=== PATIENT | female | born 1990 | race Hispanic/Latino ===

== ENCOUNTER 2018-12-24 10:11 | Emergency (ER) | payer BC ==
[2018-12-24] MEDS ORDERED: DEXAMETHASONE 4 MG TAB ONE (11:06)
[2018-12-24] MEDS ORDERED: DIAZEPAM 2 MG TABLET ONE (11:07)
[2018-12-24] MEDS ORDERED: KETOROLAC 30 MG/ML INJ ONE (11:07)
[2018-12-24] MEDS ORDERED: HYDROCODONE/APAP 10/325 TAB ONE (12:22)
--- NOTE | 2018-12-24 13:14 | EDPHYS ---
Physician Documentation [facility] Name: Robyn Ricks Age: 28 yrs Sex: Female : 1990 Arrival Date: 12/24/2018 Time: 10:14 Bed 17 Private MD: ED Physician Vinay Diggs HPI: 12/24 11:02 This 28 yrs old Female presents to ER via Wheelchair with complaints of Back pm1 Pain. 11:02 The patient presents with pain that is acute. The symptoms are located in the left low pm1 back and left mid back. Onset: The symptoms/episode began/occurred this morning. The pain does not radiate. Associated signs and symptoms: Pertinent negatives: abdominal pain, chest pain, constipation, dysuria, fever, headache, incontinence, nausea, numbness, tingling, urinary retention, vomiting. The problem was sustained when bending over, when lifting baby. Modifying factors: The patient symptoms are alleviated by remaining still, rest, the patient symptoms are aggravated by bending, movement, walking, sitting. Severity of symptoms: in the emergency department the symptoms are unchanged. The patient has not experienced similar symptoms in the past. Patient believes that pain started after putting her baby down into the crib last night. Woke up with back pain. No urinary complaints or incontinence. 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 - Social history:: Smoking status: Patient/guardian denies using tobacco. - Ebola Screening: : No symptoms or risks identified at this time. ROS: 11:02 Constitutional: Negative for fever, chills, and weight loss, Eyes: Negative for injury, pm1 pain, redness, and discharge, ENT: Negative for injury, pain, and discharge, Neck: Negative for injury, pain, and swelling, Cardiovascular: Negative for chest pain, palpitations, and edema, Respiratory: Negative for shortness of breath, cough, wheezing, and pleuritic chest pain, Abdomen/GI: Negative for abdominal pain, nausea, vomiting, diarrhea, and constipation. 11:02 : Negative for injury, bleeding, discharge, and swelling, MS/Extremity: Negative for injury and deformity, Skin: Negative for injury, rash, and discoloration, Neuro: Negative for headache, weakness, numbness, tingling, and seizure. 11:02 Back: Positive for pain with movement, of the left low back and left mid back, Negative for pain at rest. Exam: 11:02 Constitutional: This is a well developed, well nourished patient who is awake, alert, pm1 and in no acute distress. Head/Face: Normocephalic, atraumatic. Eyes: Pupils equal round and reactive to light, extra-ocular motions intact. Lids and lashes normal. Conjunctiva and sclera are non-icteric and not injected. Cornea within normal limits. Periorbital areas with no swelling, redness, or edema. ENT: Nares patent. No nasal discharge, no septal abnormalities noted. Tympanic membranes are normal and external auditory canals are clear. Oropharynx with no redness, swelling, or masses, exudates, or evidence of obstruction, uvula midline. Mucous membranes moist. Neck: Trachea midline, no thyromegaly or masses palpated, and no cervical lymphadenopathy. Supple, full range of motion without nuchal rigidity, or vertebral point tenderness. No Meningismus. Chest/axilla: Normal chest wall appearance and motion. Nontender with no deformity. No lesions are appreciated. Cardiovascular: Regular rate and rhythm with a normal S1 and S2. No gallops, murmurs, or rubs. Normal PMI, no JVD. No pulse deficits. Respiratory: Lungs have equal breath sounds bilaterally, clear to auscultation and percussion. No rales, rhonchi or wheezes noted. No increased work of breathing, no retractions or nasal flaring. Abdomen/GI: Soft, non-tender, with normal bowel sounds. No distension or tympany. No guarding or rebound. No evidence of tenderness throughout. 11:02 Skin: Warm, dry with normal turgor. Normal color with no rashes, no lesions, and no evidence of cellulitis. MS/ Extremity: Pulses equal, no cyanosis. Neurovascular intact. Full, normal range of motion. 11:02 Back: pain, is absent, vertebral process from c-spine to l-spine, normal spinal alignment noted. 11:02 Neuro: Orientation: is normal, Motor: is normal, Sensation: is normal, no obvious gross deficits. Vital Signs: 10:34 BP 113 / 75; Pulse 90; Resp 16; Temp 97.9; Pulse Ox 99% ; Pain 10/10; hb 13:25 BP 107 / 69; Pulse 85; Resp 14; Pulse Ox 100% ; bp MDM: 10:41 Patient medically screened. pm1 11:05 Data reviewed: vital signs. Data interpreted: Pulse oximetry: on room air is 99 %. pm1 Interpretation: normal. 12:08 ED course: Patient reports no improvement in pain, will order additional medication. pm1 13:11 Counseling: I had a detailed discussion with the patient and/or guardian regarding: the pm1 historical points, exam findings, and any diagnostic results supporting the discharge/admit diagnosis, the need for outpatient follow up, to return to the emergency department if symptoms worsen or persist or if there are any questions or concerns that arise at home. ED course: Patient's pain improved with medications. Patient reports improvement to right back area with gentle massage. Administered Medications: 10:52 Drug: TORadol 60 mg Route: IM; Site: right gluteus; bp 12:13 Follow up: Response: Pain is unchanged, physician notified bp 10:52 Drug: Valium 2 mg Route: PO; bp 12:13 Follow up: Response: Pain is unchanged, physician notified bp 10:52 Drug: Decadron 10 mg Route: IM; Site: Other; bp 12:14 Follow up: Response: Pain is unchanged, physician notified bp 12:14 Drug: [place] 10 mg-325 mg 1 tabs Route: PO; bp 13:27 Follow up: Response: Pain is decreased bp Disposition: 14:58 Co-signature as Attending Physician, Vinay Diggs MD I agree with the assessment and kdr plan of care. Disposition: 12/24/18 13:13 Discharged to Home. Impression: Strain of muscle and tendon of back wall of thorax. - Condition is Stable. - Discharge Instructions: Muscle Strain. - Prescriptions for Naprosyn 500 mg Oral Tablet - take 1 tablet by ORAL route 2 times per day take with food; 30 tablet. Tylenol- Codeine #3 300-30 mg Oral Tablet - take 2 tablets by ORAL route every 6 hours As needed; 20 tablet. Cyclobenzaprine 10 mg Oral Tablet - take 1 tablet by ORAL route every 8 hours As needed; 30 tablet. - Medication Reconciliation Form, Thank You Letter, Antibiotic Education, Prescription Opioid Use form. - Follow up: Emergency Department; When: As needed; Reason: Worsening of condition. Follow up: Private Physician; When: 2 - 3 days; Reason: Recheck today's complaints, Continuance of care, Re-evaluation by your physician. - Problem is new. - Symptoms have improved. Signatures: Vinay Diggs MD MD [facility] Ray Henry NP WASH RACK OPERATOR pm1 Carolann Valdez, RN RN Glenn Eckert RN RN bp Corrections: (The following items were deleted from the chart) 13:28 13:13 12/24/2018 13:13 Discharged to Home. Impression: Strain of muscle and tendon of bp back wall of thorax. Condition is Stable. Forms are Medication Reconciliation Form, Thank You Letter, Antibiotic Education, Prescription Opioid Use. Follow up: Emergency Department; When: As needed; Reason: Worsening of condition. Follow up: Private Physician; When: 2 - 3 days; Reason: Recheck today's complaints, Continuance of care, Re-evaluation by your physician. Problem is new. Symptoms have improved. pm1
--- NOTE | 2018-12-24 13:14 | ER ---
Nurse's Notes [facility] Name: Robyn Ricks Age: 28 yrs Sex: Female : 1990 Arrival Date: 12/24/2018 Time: 10:14 Bed 17 Private MD: Diagnosis: Strain of muscle and tendon of back wall of thorax Presentation: 12/24 10:32 Presenting complaint: Left mid back pain upon waking today. Pain is described as a hb severe cramp, worse when standing and sitting erect. Denies injury or urinary s/s. Transition of care: patient was not received from another setting of care. Onset of symptoms was December 24, 2018. Risk Assessment: Do you want to hurt yourself or someone else? Patient reports no desire to harm self or others. Care prior to arrival: None. 10:32 Method Of Arrival: Wheelchair hb 10:32 Acuity: BRANDI 4 hb 10:45 Initial Sepsis Screen: Does the patient meet any 2 criteria? No. Patient's initial bp sepsis screen is negative. Does the patient have a suspected source of infection? No. Patient's initial sepsis screen is negative. Triage Assessment: 10:36 General: Appears in no apparent distress. comfortable, Behavior is cooperative, bp appropriate for age, anxious. Pain: Complains of pain in back. EENT: No deficits noted. Neuro: Level of Consciousness is awake, alert, obeys commands, Oriented to person, place, time, situation, Appropriate for age. Cardiovascular: No deficits noted. Respiratory: Airway is patent Respiratory effort is even, unlabored, Respiratory pattern is regular, symmetrical. GI: No signs and/or symptoms were reported involving the gastrointestinal system. : No signs and/or symptoms were reported regarding the genitourinary system. Derm: No deficits noted. Musculoskeletal: Circulation, motion, and sensation intact. Range of motion: intact in all extremities. Injury Description: NO INJURY. 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 - Social history:: Smoking status: Patient/guardian denies using tobacco. - Ebola Screening: : No symptoms or risks identified at this time. Screenin:39 Abuse screen: Denies threats or abuse. Denies injuries from another. Nutritional bp screening: No deficits noted. Tuberculosis screening: No symptoms or risk factors identified. Fall Risk None identified. Assessment: 10:35 General: Appears in no apparent distress. uncomfortable, Behavior is cooperative, bp appropriate for age, anxious, SEE TRIAGE NOTE. 12:00 Reassessment: PT EXPRESSES NO RELIEF OF S/S, PROVIDER NOTIFIED. bp 13:24 Reassessment: PT D/C HOME AMBULATORY WITH FAMILY, DX WITH MUSCLE STRAIN. bp Vital Signs: 10:34 BP 113 / 75; Pulse 90; Resp 16; Temp 97.9; Pulse Ox 99% ; Pain 10/10; hb 13:25 BP 107 / 69; Pulse 85; Resp 14; Pulse Ox 100% ; bp ED Course: 10:14 Patient arrived in ED. rg4 10:33 Triage completed. hb 10:33 Arm band placed on right wrist. hb 10:35 Ray Henry NP is PHCP. pm1 10:35 Vinay Diggs MD is Attending Physician. pm1 10:36 Glenn Eckert, SHUKRI is Primary Nurse. bp 10:39 Patient has correct armband on for positive identification. Bed in low position. Call bp light in reach. Side rails up X2. 13:26 No provider procedures requiring assistance completed. Patient did not have IV access bp during this emergency room visit. Administered Medications: 10:52 Drug: TORadol 60 mg Route: IM; Site: right gluteus; bp 12:13 Follow up: Response: Pain is unchanged, physician notified bp 10:52 Drug: Valium 2 mg Route: PO; bp 12:13 Follow up: Response: Pain is unchanged, physician notified bp 10:52 Drug: Decadron 10 mg Route: IM; Site: Other; bp 12:14 Follow up: Response: Pain is unchanged, physician notified bp 12:14 Drug: [place] 10 mg-325 mg 1 tabs Route: PO; bp 13:27 Follow up: Response: Pain is decreased bp Outcome: 13:13 Discharge ordered by MD. pm1 13:26 Discharged to home ambulatory, with family. bp 13:26 Condition: stable 13:26 Discharge instructions given to patient, Instructed on discharge instructions, follow up and referral plans. medication usage, Demonstrated understanding of instructions, follow-up care, medications, Prescriptions given X 3. 13:28 Patient left the ED. bp Signatures: Ray Henry NP STORAGE CENTER MANAGER pm1 Carolann Valdez, RN RN Sofi Meek rg4 Glenn Eckert RN RN bp
[2018-12-24 13:33] VITALS: TEMP 97.9
[2018-12-24 13:34] VITALS: BP 107/69; O2SAT 100
== END 2018-12-24 13:28 | disposition home or self-care (01) ==
LOC: ER 10:11
DX: S29.012A Strain of muscle and tendon of back wall of thorax, initial encounter (principal); X50.9XXA Other and unspecified overexertion or strenuous movements or postures, initial encounter; Y93.89 Activity, other specified; Y92.9 Unspecified place or not applicable; Z88.0 Allergy status to penicillin
CPT/HCPCS: 96372; 99283